=== PATIENT | male | born 1995 ===

== ENCOUNTER 2021-09-27 13:09 | Outpatient (REF) | payer SELFPAY ==
[2021-09-27 14:21] LABS: Binax Internal Control QC Valid; Binax Now Covid-19 Ag Positive (Negative)
== END 2021-09-27 13:10 | disposition home or self-care (01) ==
LOC: HO.LAB 13:09
PROVIDERS: Visit Provider Internal Medicine
DX: Z20.822 Contact with and (suspected) exposure to COVID-19 (principal)
CPT/HCPCS: 36415; C9803

== ENCOUNTER 2022-10-01 10:47 | Emergency (ER) | payer OTHER, SELFPAY ==
[2022-10-01 11:04] VITALS: BP 113/70; PULSE 77; RESP 17; TEMP 36.3; O2SAT 95; BMI 22.2
[2022-10-01 11:50] LABS: COVID-19 Test Negative (Negative); IDNOW Serial# 16C4AD1C
[2022-10-01 11:54] LABS: IDNOW Serial# BCCEAD1C; Influenza A Negative (Negative); Influenza B2 Negative (Negative)
[2022-10-01 11:58] LABS: IDNOW Serial# 6674DD1D; Strep A Nucleic Acid Positive (Negative)
--- NOTE | 2022-10-01 12:00 | ED.URI ---
HPI - URI/Sore Throat General Chief Complaint: Upper Respiratory Symptoms Stated Complaint: sore throat Time Seen by Provider: 10/01/22 12:00 Source: patient Mode of arrival: ambulatory Limitations: no limitations History of Present Illness HPI Narrative: 27 yo male presents to the ER with sore throat that started yesterday. Girlfriend recently had strep. Pain with solid food but has been drinking plenty of fluids. No fevers, SOB, chest pain, N/V/D or abdominal pain. MD elicited complaint: sore throat Onset (ago): day(s) (1) Consistency: constant Severity: moderate Exacerbating factors: swallowing Relieving factors: NSAID Context: sick contacts Associated symptoms: nasal congestion and sore throat Treatments prior to arrival: none Related Data Previous Rx's Medication Instructions Recorded amoxicillin 875 mg-potassium 1 tab PO BID #20 tabs 10/01/22 clavulanate 125 mg tablet Allergies Allergy/AdvReac Type Severity Reaction Status Date / Time Unable to Assess Allergy Unverified 10/01/22 11:02 Review of Systems Review of Systems: Yes all other systems are reviewed and are negative Physical Exam Vital Signs: Vital Signs: Last Vital Signs Temp 97.4 F 10/01/22 11:04 Pulse 77 10/01/22 11:04 Resp 17 10/01/22 11:04 BP 113/70 10/01/22 11:04 Pulse Ox 95 10/01/22 11:04 O2 Del Method 10/01/22 11:04 BMI result Body Mass Index 22.2 Appearance: Alert. Oriented X3. No acute distress. Eyes: Pupils equal, round and reactive to light. ENT: Pharynx with moist mucus membranes, posterior pharynx with severe generalized erythema, mild bilateral tonsillar enlargement without exudate. uvula midline, normal voice and handling secretions normally. Neck: Normal inspection. Neck supple. CVS: Normal heart rate and rhythm. Pulses normal. Respiratory: No respiratory distress. Breath sounds normal. Skin: Skin warm and dry. Normal skin color. Normal skin turgor. No rashes. Extremities: No lower extremity edema. Neuro: Oriented X 3. nonfocal Course Course Course Narrative: 27male presents the ER for evaluation of sore throat in the setting of known strep throat exposure. Exam is consistent with strep throat. Tested positive for strep throat. Viral studies are negative. Will treat accordingly. Diagnosed management discussed with patient. Stable for discharge home Medical Decision Making Differential Diagnosis Differential Diagnoses: The differential diagnosis associated with the presentation includes Strep pharyngitis, viral pharyngitis, COVID, flu, less likely retropharyngeal abscess or peritonsillar abscess Lab Data MDM Lab Attestation statement: I reviewed the patient's lab results. Viral studies are negative, positive for strep throat. Labs: Lab Results 10/01/22 10/01/22 10/01/22 Range/Units 11:12 11:12 11:12 COVID-19 (TIMOTEO) Negative (Negative) COVID-19 Clin Com See Note Influenza Type A (SHARLENE) Negative (Negative) Influenza Type B (SHARLENE) Negative (Negative) Influenza A & B Note See Note S. pyogenes GrpA SHARLENE Positive A (Negative) Independent Historian Clinical information obtained from an independent historian. History obtained from or confirmed by: Friend phoebe had strep throat last week. Critical Care Time Critical Care Time Critical Care Time: No Discharge Plan Discharge Clinical Impression: Strep throat Patient Disposition: Home, Self-Care Instructions: Strep Throat (ED) Additional Instructions: take the prescribed antibiotic as directed gargles with warm salt water several times per day take motrin or tylenol as needed for pain follow up with your doctor as needed for pain Prescriptions: New amoxicillin-pot clavulanate 875-125 mg tablet 1 tab PO BID Qty: 20 0RF Stand Alone Forms: Work/School Release
== END 2022-10-01 12:16 | disposition home or self-care (01) ==
LOC: HO.ED 12:13
PROVIDERS: Physician Assistant; Emergency Provider Student in an Organized Health Care Education/Training Program
DX: J02.0 Streptococcal pharyngitis (principal); Z20.822 Contact with and (suspected) exposure to COVID-19; Z20.828 Contact with and (suspected) exposure to other viral communicable diseases
CPT/HCPCS: 36415; 87502; 87635; 87651; 99282; 99283

== ENCOUNTER 2022-10-09 18:56 | Emergency (ER) | payer OTHER, SELFPAY ==
--- NOTE | ~2022-10-09 | XR_ITS ---
EXAMINATION: XR LUMBOSACRAL SPINE CLINICAL INFORMATION: Low back pain COMPARISON: None TECHNIQUE: Three views of the lumbosacral spine. FINDINGS: The vertebral bodies and posterior elements are normal. The disc spaces are preserved and the vertebral alignment is normal. The paraspinal soft tissues are normal. XR/XR lumbar spine 2-3V IMPRESSION: Unremarkable examination.
[2022-10-09 19:14] VITALS: BP 129/67; PULSE 79; RESP 16; TEMP 36.7; O2SAT 100; BMI 22.2
--- NOTE | 2022-10-09 21:20 | ED.BACK ---
HPI - Back Pain/Injury General Chief Complaint: Back Pain/Injury Stated Complaint: back pain Time Seen by Provider: 10/09/22 21:16 Source: patient Mode of arrival: ambulatory Limitations: no limitations History of Present Illness HPI Narrative: Patient with chronic back problems been having more pain left lower back, atraumatic no radiation of the no bladder or bowel involvement no radiation of the pain. No leg weakness no paresthesia in the legs Related Data Previous Rx's Medication Instructions Recorded amoxicillin 875 mg-potassium 1 tab PO BID #20 tabs 10/01/22 clavulanate 125 mg tablet ibuprofen 600 mg tablet 600 mg PO Q6H PRN fever or pain 10/09/22 #30 tabs Allergies Allergy/AdvReac Type Severity Reaction Status Date / Time No Known Allergies Allergy Verified 10/09/22 19:16 Review of Systems Review of Systems: Yes all other systems are reviewed and are negative [facility] Social History Social History Advance Directives: No Advance Directives Information Provided: No Physical Exam Vital Signs: Vital Signs: Last Vital Signs Temp 98.0 F 10/09/22 19:14 Pulse 79 10/09/22 19:14 Resp 16 10/09/22 19:14 BP 129/67 10/09/22 19:14 Pulse Ox 100 10/09/22 19:14 O2 Del Method 10/09/22 19:14 BMI result Body Mass Index 22.2 Appearance: Alert. Oriented X3. No acute distress. ENT: Pharynx normal. Oral Mucosa moist Neck: Normal inspection. Neck supple. CVS: Normal heart rate and rhythm. Pulses normal. Respiratory: No respiratory distress. Equal air entry bilateral, Abdomen: Soft and nontender. Skin: Skin warm and dry. Normal skin color. Normal skin turgor. Extremities: No lower extremity edema. No calf tenderness Back; diffuse left paraspinal lower lumbar tenderness no midline tenderness SLR negative gait normal Neuro: Oriented X 3. No motor deficit. No sensory deficit Medications Administered Discontinued Medications Generic Name Dose Route Start Last Admin Trade Name Freq PRN Reason Stop Dose Admin Ibuprofen 600 mg 10/09/22 21:38 10/09/22 21:43 Ibuprofen 600 Mg Tablet PO 10/09/22 21:39 600 mg ONCE ONE Administration Medical Decision Making Medical Decision Making MDM Narrative: Minor musculoskeletal pain x-ray negative no midline tenderness no spinal cord involvement discharge patient on ibuprofen Discharge Plan Discharge Clinical Impression: Strain of lumbar region Patient Disposition: Home, Self-Care Instructions: Acute Low Back Pain (ED) Additional Instructions: Ibuprofen for pain Follow with PCP if pain continues Prescriptions: New ibuprofen 600 mg tablet 600 mg PO Q6H PRN (Reason: fever or pain) Qty: 30 0RF No Action amoxicillin-pot clavulanate 875-125 mg tablet 1 tab PO BID Qty: 20 0RF Stand Alone Forms: Work/School Release Interventions: ED Discharge Assessment Last Done: 10/09/22 21:48
[2022-10-09] MEDS: Ibuprofen 600 MG TABLET PO (21:43)
== END 2022-10-09 21:49 | disposition home or self-care (01) ==
PROVIDERS: Emergency Provider Internal Medicine
DX: M54.50 Low back pain, unspecified (principal)
CPT/HCPCS: 72100; 99283

== ENCOUNTER 2024-01-14 18:50 | Emergency (ER) | payer OTHER, SELFPAY ==
--- NOTE | ~2024-01-14 | CT_ITS ---
EXAMINATION: CT HEAD WITHOUT CONTRAST CLINICAL INFORMATION: Headache. COMPARISON: None available. TECHNIQUE: Contiguous axial imaging was performed from the skull base to vertex without intravenous administration of contrast. This CT examination was performed using dose optimization techniques as appropriate, variously including the following: *Automated exposure control *Adjustment of mA and/or kV according to patient size (this includes techniques or standardized protocols for targeted exams where dose is matched to indication/reason for exam; i.e. extremities or head) *Use of iterative reconstruction technique DLP: 671 mGy-cm FINDINGS: The lateral, third and fourth ventricles are normally outlined. The cortical sulci and basal cisterns are normally outlined as well. There is no acute territorial defect, hemorrhage or midline shift. The extra-axial spaces are unremarkable. Calvarium: Intact. Maxillofacial sinuses and mastoids: Clear as visualized. CT/CT head/brain wo IV con IMPRESSION: No acute intracranial pathology.
[2024-01-14 19:21] VITALS: BP 135/77; PULSE 98; RESP 16; TEMP 36.2; O2SAT 100; BMI 21.2
[2024-01-14 19:56] LABS: MANUAL DIFF FLAG NO
[2024-01-14 19:58] LABS: Basophils Percent Auto 0.2 % (0-2); Eosinophils Absolute Auto 0.1 X10*3/uL (0.0-0.4); Eosinophils Percent Auto 0.4 % (0-4); Hematocrit 44.5 % (42.0-52.0); Hemoglobin 15.5 g/dl (14.0-18.0); Imm Gran Abs Auto 0.03 X10*3/uL (0.00-0.03); Imm Gran Pct Auto 0.2 % (0.0-0.4); Lymphocytes Absolute Auto 1.4 X10*3/uL (1.2-4.9); Lymphocytes Percent Auto 11.5 % (20-40); Mean Corpuscular HGB Conc 34.8 g/dl (31.0-36.0); Mean Corpuscular Hemoglobin 29.9 pg (27.0-33.0); Mean Corpuscular Volume 85.9 fL (80.0-98.0); Mean Platelet Volume 9.3 fL (9.4-12.4); Monocytes Absolute Auto 0.8 X10*3/uL (0.1-1.2); Monocytes Percent Auto 6.8 % (2-11); Neutrophils Percent Auto 80.9 % (45-73); Platelet Count 240 X10*3/uL (160-400); Red Blood Count 5.18 X10*6/uL (4.60-5.80); Red Cell Distribution Width 12.1 % (11.0-16.0); White Blood Count 12.4 X10*3/uL (4.8-10.8)
[2024-01-14 20:04] LABS: IDNOW Serial# 58CA691E; Strep A Nucleic Acid Negative (Negative)
[2024-01-14 20:15] LABS: Alanine Aminotransferase 29 U/L (0-40); Albumin Level 4.8 g/dL (3.5-5.0); Alkaline Phosphatase 71 U/L (39-117); Anion Gap 10 (12-20); Aspartate Amino Transferase 24 U/L (5-37); Bilirubin Total 0.5 mg/dL (0.0-1.0); Blood Urea Nitrogen 11 mg/dL (9-16); Calcium 10.1 mg/dL (8.4-10.2); Carbon Dioxide 32 mmol/L (22-29); Chloride 99 mmol/L (96-108); Creatinine Clr Calc Pharmacy 110.2; Estimated Glomerular Filt Rate > 60; Glucose Random 97 mg/dL (60-115); Sodium 137 mmol/L (135-145); Total Protein 8.7 g/dL (6.5-8.0)
[2024-01-14 20:37] LABS: Influenza A PCR NEGATIVE (Negative); Influenza B PCR NEGATIVE (Negative); Resp Syncy Virus RNA Qual PCR NEGATIVE (Negative); SARS COV2 PCR INHOUSE NEGATIVE (Negative)
[2024-01-14 21:24] VITALS: BP 147/81; PULSE 100; RESP 18; TEMP 37.1; O2SAT 99
--- NOTE | 2024-01-14 22:54 | ED_ITS ---
HPI - Headache General Chief Complaint: Headache Stated Complaint: headache, sore throat Time Seen by Provider: 01/14/24 22:44 Source: patient Mode of arrival: ambulatory Limitations: no limitations History of Present Illness HPI Narrative: Patient comes to the emergency room complaining of headache for approximately 3 weeks. Patient states that he has been taking ibuprofen every 6 to 8 hours without any relief. Patient has also been taking Tylenol. Patient states that over last 2 days he has had a bit of a sore throat and right ear pain, no discharge. No cough, no fever or chills. Related Data Previous Rx's ?Medication ?Instructions ?Recorded amoxicillin 875 mg-potassium 1 tab PO BID #20 tabs 10/01/22 clavulanate 125 mg tablet ibuprofen 600 mg tablet 600 mg PO Q6H PRN fever or pain 10/09/22 #30 tabs ketorolac 10 mg tablet 10 mg PO Q8H PRN pain #10 tabs 01/15/24 Allergies Allergy/AdvReac Type Severity Reaction Status Date / Time No Known Allergies Allergy Verified 01/14/24 19:24 Review of Systems 2 Review of Systems: Constitutional : No Weight loss, No Fever, No Chills, No Night Sweats, No Fatigue, No Malaise ENT/Mouth : No Hearing loss, complaining of right-sided Ear Pain, No Nasal Congestion, No Sinus Pain, No Hoarseness, complaining of sore throat, No Rhinorrhea, No Swallowing Difficulty Eyes: No Eye Pain, No Swelling, No Redness, No Foreign Body, No Discharge, No Vision Changes Cardiovascular : No Chest Pain, No SOB, No Dyspnea on Exertion, No Orthopnea, No Edema, No Palpitations Respiratory : No Cough, No Sputum, No Wheezing, No Smoke Exposure, No Dyspnea Gastrointestinal : No Nausea, No Vomiting, No Diarrhea, No Constipation, No abdominal Pain, No Hematochezia, No Melena Genitourinary : no irregular bleeding, No Dysuria, No Urinary Frequency, No Hematuria, No Urinary Incontinence, No Urgency, No Flank Pain, No Urinary Flow Changes, No Hesitancy Musculoskeletal : No joint pain, No Myalgias, No Joint Swelling Skin : No Skin Lesions, No rash Neuro : No Weakness, No Numbness, No Paresthesias, No Loss of Consciousness, No Dizziness, complaining of 3 weeks of Headache Psych : No Anxiety/Panic, No Depression, No SI/HI/AH/VH, No Social Issues, Heme/Lymph: No Bruising, No Bleeding,No Lymphadenopathy Endocrine : No Polyuria, No Polydipsia, No Temperature Intolerance PMFSH Social History Social History Advance Directives: No Advance Directives Information Provided: No Do you have a plan to hurt others: No Plan Physical Exam 2 Vital Signs: Vital Signs: Last Vital Signs Temp 98.2 F 01/15/24 01:37 Pulse 68 01/15/24 01:37 Resp 16 01/15/24 01:37 BP 134/80 01/15/24 01:37 Pulse Ox 94 01/15/24 01:37 O2 Del Method Room Air 01/15/24 01:37 BMI result Body Mass Index 21.2 Const: Other: Appearance: Alert. Oriented X3. No acute distress. Eyes: Pupils equal, round and reactive to light. ENT: Pharynx normal. Bilateral tympanic membranes within normal limits, no TMJ pain Neck: Normal inspection. Neck supple. No lymph nodes noted. No crepitus CVS: Normal heart rate and rhythm. Pulses normal. Normal S1 and S2 Respiratory: No respiratory distress. Breath sounds normal. No Wheezing. No rales Abdomen: Soft and nontender. No rigidity. No distention. Skin: Skin warm and dry. Normal skin color. Normal skin turgor. Extremities: No lower extremity edema. No Lacerations. No Rash Neuro: Oriented X 3. No motor deficit. No sensory deficit. Moving all extremities. No slurred speech. CN 2 through 12 grossly intact Psych: calm, cooperative, normal affect Medications Administered Discontinued Medications Generic Name Dose Route Start Last Admin Trade Name Freq PRN Reason Stop Dose Admin Diphenhydramine HCl 25 mg 01/14/24 22:53 01/14/24 23:11 Diphenhydramine Hcl 50 Mg/Ml Vial IVPUSH 01/14/24 22:54 25 mg ONCE ONE Administration Sodium Chloride 1,000 mls @ 999 mls/hr 01/14/24 22:53 01/15/24 01:06 Ns IVCONT 01/14/24 23:53 Infused .Q1H1M ONE Infusion Ketorolac Tromethamine 30 mg 01/14/24 22:53 01/14/24 23:11 Ketorolac Tromethamine 30 Mg/Ml Vial IVPUSH 01/14/24 22:54 30 mg ONCE ONE Administration Metoclopramide HCl 10 mg 01/14/24 22:53 01/14/24 23:11 Metoclopramide Hcl 10 Mg/2 Ml Vial IVPUSH 01/14/24 22:54 10 mg ONCE ONE Administration Medical Decision Making Medical Decision Making [facility] Narrative: -my interpretation of labs: White blood cell count 12.4, likely viral syndrome. Chemistry within normal limits, no acute findings, serology negative for influenza RSV COVID and strep -patient states that he has been having headache for 3 weeks, CT scan of the head pending -for symptomatic treatment, patient getting IV fluids, IV Toradol, Reglan and Benadryl -after the IV treatment, patient states that he feels much better and no longer has headache. -discussed with the patient that he likely had a migraine headache versus cluster headache. Patient will follow-up with his primary care physician. -my interpretation of CT scan, no mass, no intracranial bleed or obvious lesion Differential Diagnosis Differential Diagnoses: The differential diagnosis associated with the presentation includes (Tension headache, cluster headache, migraine headache, viral URI, brain mass) Admission/Observation Consideration of admission/observation: Escalation of care including admission/observation considered (Given patient's length of symptoms, admission was considered) Lab Data [facility] Lab Attestation statement: I reviewed the patient's lab results. 01/14/24 19:54 01/14/24 19:54 Labs: Lab Results 01/14/24 Range/Units 19:54 WBC 12.4 H (4.8-10.8) X10*3/uL RBC 5.18 (4.60-5.80) X10*6/uL Hgb 15.5 (14.0-18.0) g/dl Hct 44.5 (42.0-52.0) % MCV 85.9 (80.0-98.0) fL MCH 29.9 (27.0-33.0) pg MCHC 34.8 (31.0-36.0) g/dl RDW 12.1 (11.0-16.0) % Plt Count 240 (160-400) X10*3/uL MPV 9.3 L (9.4-12.4) fL Immature Gran % (Auto) 0.2 (0.0-0.4) % Neut % (Auto) 80.9 H (45-73) % Lymph % (Auto) 11.5 L (20-40) % [place] % (Auto) 6.8 (2-11) % Eos % (Auto) 0.4 (0-4) % Baso % (Auto) 0.2 (0-2) % Lymph # (Auto) 1.4 (1.2-4.9) X10*3/uL [place] # (Auto) 0.8 (0.1-1.2) X10*3/uL Eos # (Auto) 0.1 (0.0-0.4) X10*3/uL Baso # (Auto) 0.0 (0.0-0.2) X10*3/uL Abs Immat Gran (auto) 0.03 (0.00-0.03) X10*3/uL Absolute Neuts (auto) 10.0 H (2.0-8.3) x10*3/uL Absolute Nucleated RBC 0.000 (0.0-0.012) X10*3/uL Nucleated RBC % (auto) 0.0 (0.0-0.2) /100WBC Sodium 137 (135-145) mmol/L Potassium 4.0 (3.3-5.1) mmol/L Chloride 99 (96-108) mmol/L Carbon Dioxide 32 H (22-29) mmol/L Anion Gap 10 L (12-20) BUN 11 (9-16) mg/dL Creatinine 0.99 (0.5-1.4) mg/dL Estim Creat Clear Calc 110.2 Estimated GFR > 60 Random Glucose 97 (60-115) mg/dL Calcium 10.1 (8.4-10.2) mg/dL Total Bilirubin 0.5 (0.0-1.0) mg/dL AST 24 (5-37) U/L ALT 29 (0-40) U/L Alkaline Phosphatase 71 (39-117) U/L Total Protein 8.7 H (6.5-8.0) g/dL Albumin 4.8 (3.5-5.0) g/dL Influenza Type A (PCR) NEGATIVE (Negative) Influenza Type B (PCR) NEGATIVE (Negative) RSV RNA Qual (PCR) NEGATIVE (Negative) SARS-CoV-2 RNA (RT-PCR) NEGATIVE (Negative) S. pyogenes GrpA SHARLENE Negative (Negative) Independent Interpretation I performed an independent interpretation of an: CT Scan Radiology Impression Discussion of test interpretation with radiology: I have reviewed the radiologist's reading. Radiologist Impression: FINDINGS: The lateral, third and fourth ventricles are normally outlined. The cortical sulci and basal cisterns are normally outlined as well. There is no acute territorial defect, hemorrhage or midline shift. The extra-axial spaces are unremarkable. Calvarium: Intact. Maxillofacial sinuses and mastoids: Clear as visualized. CT/CT head/brain wo IV con IMPRESSION: No acute intracranial pathology. Discharge Plan Discharge Clinical Impression: Migraine Patient Disposition: Home, Self-Care Instructions: Migraine Headache (ED) Additional Instructions: Please follow-up with your primary care physician tomorrow. If you have any worsening or new symptoms, please return to the emergency room or call 911 Prescriptions: New ketorolac 10 mg tablet 10 mg PO Q8H PRN (Reason: pain) Qty: 10 0RF Rx Instructions: Do not use this medication with ibuprofen, only Tylenol if needed No Action ibuprofen 600 mg tablet 600 mg PO Q6H PRN (Reason: fever or pain) Qty: 30 0RF amoxicillin-pot clavulanate 875-125 mg tablet 1 tab PO BID Qty: 20 0RF Stand Alone Forms: Work/School Release Print Language: Egyptian
[2024-01-14] MEDS: Ketorolac Tromethamine 30 MG/ML VIAL IVPUSH (23:11)
[2024-01-14] MEDS: Metoclopramide HCl 10 MG/2 ML VIAL IVPUSH (23:11)
[2024-01-14] MEDS: 0.9 % Sodium Chloride 1,000 ML 999 ML IVCONT (23:11)
[2024-01-14] MEDS: diphenhydrAMINE HCL 50 MG/ML VIAL 25 MG IVPUSH (23:11)
--- NOTE | 2024-01-14 23:20 | PC.NURSE ---
20G PIV placed R AC, 1L NS running, medicated per NOV. pt pending CT.
[2024-01-15 01:37] VITALS: BP 134/80; PULSE 68; RESP 16; TEMP 36.8; O2SAT 94
[2024-01-15 02:03] VITALS: BP 134/80; PULSE 68; RESP 16; TEMP 36.8; O2SAT 94
== END 2024-01-15 02:03 | disposition home or self-care (01) ==
PROVIDERS: Emergency Provider Emergency Medicine
DX: G43.909 Migraine, unspecified, not intractable, without status migrainosus (principal); J02.9 Acute pharyngitis, unspecified; H92.01 Otalgia, right ear; R11.0 Nausea; Z11.52 Encounter for screening for COVID-19; Z20.822 Contact with and (suspected) exposure to COVID-19; Z79.899 Other long term (current) drug therapy
CPT/HCPCS: 0241U; 70450; 80053; 85025; 87651; 96361; 96374; 96375; 99284; J1200; J1885; J2765